=== PATIENT | female | born 1960 | race Caucasian/White ===

== ENCOUNTER 2021-03-01 13:41 | Emergency (ER) | payer BC ==
--- NOTE | 2021-03-01 14:30 | EDM.PDOC ---
ED HPI GENERAL MEDICAL PROBLEM - General Chief Complaint: Lower Extremity Injury/Pain Stated Complaint: OSTEOPOROSIS / INJURED FOOT Time Seen by Provider: 03/01/21 14:10 Source of Information: Reports: Patient, RN History Limitations: Reports: No Limitations - History of Present Illness INITIAL COMMENTS - FREE TEXT/NARRATIVE: ED with pain to left mid foot, Initially denied injury than admitted stumbiling and twisting foot approximatley 30 minutes prior to onset of discomfort. Pain with weight bearing. Left Foot Pain Score (Numeric/FACES): 8 - Related Data Allergies Allergy/AdvReac Type Severity Reaction Status Date / Time acetaminophen Allergy Cannot Verified 03/01/21 13:58 [From Darvocet-N] Remember azithromycin Allergy Cannot Verified 03/01/21 13:58 Remember codeine Allergy Cannot Verified 03/01/21 13:58 Remember doxycycline Allergy Cannot Verified 03/01/21 13:58 Remember meperidine [From Demerol] Allergy Cannot Verified 03/01/21 13:58 Remember propoxyphene Allergy Cannot Verified 03/01/21 13:58 [From Darvocet-N] Remember Past Medical History Musculoskeletal History: Reports: Osteoporosis Social & Family History - Tobacco Use Tobacco Use Status *Q: Never Tobacco User - Recreational Drug Use Recreational Drug Use: No Review of Systems - Review of Systems Review Of Systems: Comprehensive ROS is negative, except as noted in HPI. ED EXAM, GENERAL - Physical Exam Exam: See Below Exam Limited By: No Limitations General Appearance: Alert, No Apparent Distress Eye Exam: Bilateral Eye: PERRL Ears: Normal External Exam Nose: Normal Inspection Respiratory/Chest: No Respiratory Distress, Lungs Clear, Normal Breath Sounds Cardiovascular: Normal Peripheral Pulses, Regular Rate, Rhythm GI/Abdominal: Normal Bowel Sounds, Soft Extremities: Normal Inspection, Normal Range of Motion, Other (tender medial forefoot with palpation, no swelling of deformity. ) Neurological: Alert, Oriented Skin Exam: Warm, Dry, Intact, Normal Color. No: Ecchymosis Course - Vital Signs Last Recorded V/S: Last Vital Signs Temp 98.9 F 03/01/21 13:58 Pulse 83 03/01/21 13:58 Resp 16 03/01/21 13:58 BP 115/64 03/01/21 13:58 Pulse Ox 96 03/01/21 13:58 Departure - Departure Time of Disposition: 15:05 Disposition: Home, Self-Care 01 Condition: Good Clinical Impression: Right foot pain - Discharge Information *PRESCRIPTION DRUG MONITORING PROGRAM REVIEWED*: No *COPY OF PRESCRIPTION DRUG MONITORING REPORT IN PATIENT TRISTAN: No Instructions: Foot Sprain Referrals: PCP,Unobtain [Primary Care Provider] - Forms: ED Department Discharge Additional Instructions: ice elevate weight bearing as tolerated\ ibuprofen every 6 hours as needed for discomfort post op shoe for comfort recheck clinic next week if not improved Sepsis Event Note (ED) - Evaluation Sepsis Screening Result: No Definite Risk - Focused Exam Vital Signs: Vital Signs Temp Pulse Resp BP Pulse Ox 03/01/21 13:58 98.9 F 83 16 115/64 96
--- NOTE | 2021-03-01 14:50 | CR ---
PROCEDURE INFORMATION: Exam: XR Left Foot Exam date and time: 03/01/2021 2:09 PM Age: 60 years old Clinical indication: Pain; Foot; Left; Additional info: Pain, twisted TECHNIQUE: Imaging protocol: XR Left foot. Views: 3 or more views. Total images: 3 COMPARISON: No relevant prior studies available. FINDINGS: Bones/joints: Large plantar calcaneal spur. Hyperostosis at the calcaneal attachment of the Achilles tendon. Minimal degenerative changes at the 1st MTP joint. Spurring at the level of the midfoot. Soft tissues: Minimal soft tissue edema. IMPRESSION: 1. No acute fracture. 2. Scattered degenerative changes.
== END 2021-03-01 15:57 | disposition home or self-care (01) ==
LOC: DL.ED 13:41
DX: M79.672 Pain in left foot (principal); Z88.6 Allergy status to analgesic agent; Z88.1 Allergy status to other antibiotic agents; Z88.5 Allergy status to narcotic agent
CPT/HCPCS: 73630-LT; 99283-25